=== PATIENT | male | born 1980 | race Caucasian/White ===

== ENCOUNTER 2020-02-26 21:22 | Inpatient (IN) | payer OTHER ==
[~2020-02-26] VITALS: Ht 177.8 cm; Wt 109.3 kg
--- NOTE | ~2020-02-26 | HEMODYNAMI ---
PATIENT:NATHALIE PINEDA MEDICAL RECORD: [id number] : 82 LOCATION:[facility] D.2310 ADMISSION DATE: 02/26/20 Generatedon:02/27/202010:31 Patient name: NATHALIE PINEDA Patient #: [id number] SSN: [id number] : 1980 Date of study: 02/27/2020 Page: Of Hemodynamic Procedure Report Patient Data Patient Demographics Procedure consent was obtained First Name: NATHALIE Gender: Male Last Name: EDWIN : 1980 Patient #: [id number] Age: 39 year(s) Race: Unknown SSN: [id number] Additional ID: [id number] Contact details [address]: [address] [place] [address] State: [place] City: [place] Zip code: [address] Past Medical History Allergies Allergen Reaction Date Comments Reported Penicillins 02/27/2020 Admission Admission Data Admission Date: 02/26/2020 Admission Time: 23:32 Room #: D.2310 Lab Results Lab Result Date: 02/27/2020 Lab Result Time: 0:00 Biochemistry Name Units Result Min Max BUN mg/dl 14 --(--*-)-- 7 18 Creatinine mg/dl 0.8 --(-*--)-- 0.6 1.3 eGFR ml/min 90 --(*---)-- 90 120 NONAFRICAN CBC Name Units Result Min Max Hematocrit % 44.9 --(*---)-- 42 54 Hemoglobin g/dl 16.4 --(--*-)-- 13.5 17.5 Procedure Procedure Types Cath Procedure Diagnostic Procedure [facility] w/Coronaries Sedation Charges Moderate Sedation up to 45 minutes PCI Procedure Coronary Stent Coronary Stent Initial Hemochron ACT Test Procedure Description Procedure Date Procedure Date: 02/27/2020 Procedure Start Time: 9:39 Procedure End Time: 10:24 Procedure Staff Name Function Alecia Mosley RT Monitor Jhony Talbot MD Performing Physician Renetta Baxter RT Scrub [facility] RT Monitor Mary Ellen Acharya RN Nurse Procedure Data Cath Procedure Fluoroscopy Diagnostic fluoroscopy Total fluoroscopy Time: time: 15.7 min 15.7 min Diagnostic fluoroscopy Total fluoroscopy dose: dose: 1854 mGy 1854 mGy Contrast Material Contrast Material Type Amount (ml) Isovue 300 119 Entry Location Entry Primary Successful Side Size Upsize Upsize Entry Closure Rousseau ccessful Closure Location (Fr) 1 (Fr) 2 (Fr) Remarks Device Remarks Radial Right 6 Fr Mechanical artery Short Compression Estimated blood loss: 5 ml Diagnostic catheters Device Type Used For End Catheter Placement DIAGNOSTIC [place] 110cm 5 Procedure Fr catheter ([id number]) DIAGNOSTIC Ghanshyam 110cm Procedure 5Fr catheter (103802) Procedure Complications No complications Procedure Medications Medication Administration Route Dosage 0.9% NaCl I.V. 100 ml/hr Oxygen etCO2 Nasal cannula 2 l/min Lidocaine 2% added to field 20 Heparin Flush Bag added to field 2 bags (1000units/500ml NS) Versed I.V. 1 mg Fentanyl I.V. 25 mcg Brilinta P.O. 90 mg Radial Cocktail added to field 1 syringe (Verapamil 2mg/Nitro 400mcg/Heparin 1500units) Heparin Bolus I.V. 8000 units Nitroglycerin IC/IA I.C. 300 mcg Heparin Bolus I.V. 2000 units Hemodynamics Rest HGB: 16.4 (g/dl) Heart Rate: 75 (bpm) Pressure Samples Time Site Value (mmHg) Purpose Heart Use Rate(bpm) 9:42 LV 138/-7,15 Snapshot 70 9:43 LV 146/-6,19 EDP 74 Gradients Valve Time Site Site Mean SEP/DFP Peak To Heart Use 1 2 (mmHg) (sec/min) Peak Rate (mmHg) (bpm) Aortic 9:43 LV AO 76 Snapshots Pre Cath Intra NCS Post Cath Vital Signs Time Heart Resp SPO2 etCO2 NIBP (mmHg) Rhythm Pain Sedation Rate (ipm) (%) (mmHg) Status Level (bpm) 9:26:45 82 18 96 28 141/87(104) NSR 0 (11) 10(A) , No pain 9:31:44 59 17 95 26 Measuring SB 0 (11) 10(A) , No pain 9:32:06 59 17 96 24.5 139/78(93) SB 0 (11) 10(A) , No pain 9:36:34 70 16 95 27.5 141/77(99) NSR 0 (11) 9(A) , No pain 9:40:52 75 18 97 27.5 120/68(89) NSR 0 (11) 9(A) , No pain 9:45:11 66 17 98 28.2 133/76(126) NSR 0 (11) 9(A) , No pain 9:49:33 75 16 98 31.2 130/76(113) NSR 0 (11) 9(A) , No pain 9:53:51 63 15 97 31.2 128/88(121) NSR 0 (11) 9(A) , No pain 9:58:09 65 17 95 28.2 130/75(105) NSR 0 (11) 9(A) , No pain 10:02:27 58 16 98 26.8 139/82(105) SB 0 (11) 9(A) , No pain 10:06:51 75 19 98 27.5 155/81(100) NSR 0 (11) 9(A) , No pain 10:11:11 62 16 96 28.2 157/89(109) NSR 0 (11) 9(A) , No pain 10:15:31 77 17 97 21.5 121/77(96) NSR 0 (11) 9(A) , No pain 10:19:45 58 17 97 26.8 140/87(104) SB 0 (11) 10(A) , No pain Medications Time Medication Route Dose Verified Delivered Reason Not es Effectiveness by by 9:32:53 0.9% NaCl I.V. 100 Jhony Mary Ellen used for ml/hr Dahiana bello MD RN 9:33:01 Oxygen etCO2 2 l/min Jhony Mary Ellen used for Nasal Dahiana Acharya procedure cannula RN 9:33:06 Lidocaine 2% added 20ml Jhony Jhony for local to vial Dahiana Talbot MD anesthetic field YEBOAH 9:33:11 Heparin Flush added 2 bags Jhony Jhony used for Bag to Dahiana Talbot MD procedure (1000units/500ml field YEBOAH NS) 9:33:16 Versed I.V. 1 mg Jhony Mary Ellen for sedation Dahiana Acharya MD RN 9:33:21 Fentanyl I.V. 25 mcg Jhony Mary Ellen for sedation Dahiana Acharya MD RN 9:34:12 Brilinta P.O. 90 mg Jhony Mary Ellen for Dahiana Acharya antiplatelet RN therapy 9:37:46 Radial Cocktail added 1 Jhony Jhony used for (Verapamil to syringe Dahiana Talbot MD procedure 2mg/Fabien natarajan MD 400mcg/Hepari 9:53:55 Heparin Bolus I.V. 8000 Jhony Mary Ellen for evin ified units Dahiana Acharya anticoagulation with Dr. MD LUCILA Talbot 10:14:11 Nitroglycerin I.C. 300 mcg Jhony Jhony for IC/IA Dahiana Talbot MD vasodilation MD 10:23:09 Heparin Bolus I.V. 2000 Jhony Jhony for evin ified units Dahiana Talbot MD anticoagulation with Dr. MD Talbot Procedure Log Time Note 8:56:55 Informed consent obtained and on chart 9:07:53 Procedure Status Urgent Heart Cath (IP). 9:07:57 Mary Ellen Acharya RN sent for patient. Start room use. 9:07:58 Time tracking: Regular hours (M-F 7:00 - 5:00) 9:08:01 Plan of Care:Hemodynamics will remain stable., Cardiac rhythm will remain stable., Comfort level will be maintained., Respiratory function will remain adequate., Patient/ family verbilizes understanding of procedure., Procedure tolerated without complication., Recovers from procedure without complications.. 9:09:06 H&P Date Dictated: 02/27/2020 ER History on chart.. 9:09:13 Patient allergic to Penicillins 9:09:49 Lab Result : Hemoglobin 16.4 g/dl 9:09:49 Lab Result : Hematocrit 44.9 % 9:09:49 Lab Result : eGFR NONAFRICAN 90 ml/min 9:09:49 Lab Result : BUN 14 mg/dl 9:09:49 Lab Result : Creatinine 0.8 mg/dl 9:18:48 Patient received from ICU to CCL 1 Alert and oriented. Tansferred to table in Supine position. 9:18:49 Correct patient and procedure confirmed by team. 9:18:49 Warm blankets applied, and yunior hugger turned on for patient comfort. 9:18:50 ECG and BP/O2 sat monitors applied to patient. 9:25:31 Vital chart was started 9:25:35 Baseline sample Acquired. 9::43 Rhythm: sinus rhythm 9:25:46 Full Disclosure recording started 9::57 Pre-procedure instructions explained to patient. 9::59 Pre-op teaching completed and patient verbalized understanding. 9:26:05 Family unavailable. 9:26:10 Patient NPO since Midnight. 9:26:17 Is the patient allergic to Iodine/contrast media? No. 9:26:31 Was the patient premedicated? Yes 9:26:32 Is patient on blood thinner?Yes 9::35 ACC The patient was administered the following blood thiners within the last 24 hours: ACCEffient 9::43 Patient diabetic? Yes. 9:26:44 If diabetic: On Metformin? Yes 9:27:00 Snore? Yes 9:27:07 Sleep apnea? Yes 9:27:15 Patient pain scale 0/10 ?. 9:27:25 IV patent on arrival in left forearm with 0.9% NaCl at KVO. 9:27:31 Lab results completed and on chart. 9:27:39 Right Radial & Right Groin area was prepped with chlora-prep and draped in sterile fashion 9:27:40 Alarms reviewed by R. N. 9:27:41 Sharps counted by scrub and verified by R.N. 9:27:42 Physician paged 9:29:02 Physician arrived 9:29:03 --------ALL STOP TIME OUT------ 9:29:04 Final Timeout: patient, procedure, and site verified with staff and physician. All members of the team are in agreement. 9:29:07 Right Radial & Right Groin site verified by team. 9:29:15 Fire Safety Assessment: A--An alcohol-based skin anteseptic being used preoperatively., C--Open oxygen or nitrous oxide is being used., D--An ESU, laser, or fiber-optic light is being used. 9:29:24 Physical assessment completed. ASA score P 3 - A patient with severe systemic disease as per Jhony Talbot MD. 9:29:51 1) 90+ Normal kidney functon but urine findings or structural abnormalities or genetic trait point to kidney disease. 9:30:11 Maximum allowable contrast dose (3.7 X eGFR X 0.75)249 ml. 9:30:19 Sedation plan: IV Moderate Sedation Medication:Versed, Fentanyl 9:30:25 Use device set Radial Dx or PCI 9:32:30 Pt heart rhthym junctional 9:32:53 0.9% NaCl 100 ml/hr I.V. was administered by Mary Ellen Acharya RN; used for procedure; Verbal order read back and verified. 9:33:01 Oxygen 2 l/min etCO2 Nasal cannula was administered by Mary Ellen Acharya RN; used for procedure; Verbal order read back and verified. 9:33:06 Lidocaine 2% 20ml vial added to field was administered by Jhony Talbot MD; for local anesthetic; Verbal order read back and verified. 9:33:11 Heparin Flush Bag (1000units/500ml NS) 2 bags added to field was administered by Jhony Talbot MD; used for procedure; Verbal order read back and verified. 9:33:16 Versed 1 mg I.V. was administered by Mary Ellen Acharya RN; for sedation; Verbal order read back and verified. 9:33:21 Fentanyl 25 mcg I.V. was administered by Mary Ellen Acharya RN; for sedation; Verbal order read back and verified. 9:34:11 Procedure started. 9:34:12 Brilinta 90 mg P.O. was administered by Mary Ellen Acharya RN; for antiplatelet therapy; Verbal order read back and verified. 9:37:46 Radial Cocktail (Verapamil 2mg/Nitro 400mcg/Heparin 1500units) 1 syringe added to field was administered by Jhony Talbot MD; used for procedure; Verbal order read back and verified. 9:39:22 Local anesthetic to right radial artery with Lidocaine 2% by Jhony Talbot MD.INITIAL ACCESS ONLY 9:40:09 A 6 Fr Short sheath was inserted into the Right Radial artery 9:40:12 ACIST Syringe (88284) opened to sterile field. 9:40:13 Medline Cath Pack ([id number]) opened to sterile field. 9:40:14 ACIST Manifold (00130) opened to sterile field. 9:40:14 ACIST Hand Control (16037) opened to sterile field. 9:40:14 Bag Decanter (2001S) opened to sterile field. 9:40:16 Tegaderm 4 x 4 (1626W) opened to sterile field. 9:40:17 MBrace Wrist Support ([id number]) opened to sterile field. 9:40:18 NEEDLE Cook 21G 4cm Radial (V41622) opened to sterile field. 9:40:20 EMERALD Guide Wire (502-455) opened to sterile field. 9:40:22 SHEATH 6FR RAIN (5621093) opened to sterile field. 9:40:35 A DIAGNOSTIC [place] 110cm 5 Fr catheter (598141) was advanced over the wire and used for Procedure. 9:42:06 LV angiography performed. 9:42:08 EF : 70 % 9:42:09 Zero performed for pressure channel P1 9:43:50 RCA angiography performed. 9:46:58 Catheter removed. 9:47:07 A DIAGNOSTIC Ghanshyam 110cm 5Fr catheter (274069) was advanced over the wire and used for Procedure. 9:48:03 LCA angiography performed. 9:48:37 Zero performed for pressure channel P1 9:51:37 COPILOT Valve Control (2815612) opened to sterile field. 9:51:38 BMW 190cm [place] 2 J wire ([id number]) opened to sterile field. 9:51:38 INFLATOR Merit BasixCompak (LS7642) opened to sterile field. 9:51:39 GUIDE 6FR ART 3.5 SH catheter ([id number]) opened to sterile field. 9:51:47 Catheter removed. 9:51:48 Proceeding to intervention. 9:52:04 Pre PCI Site: [place] pRCA has 100% stenosis. 9:52:14 6 Fr ART3.5SH guide catheter was inserted over the wire 9:53:55 Heparin Bolus 8000 units I.V. was administered by Mary Ellen Acharya RN; for anticoagulation; verified with Dr. Talbot Verbal order read back and verified. 10:00:33 BMW wire advanced. 10:02:10 Quick combo pads placed on patients chest and back. 10:02:12 Quick Combo opened to sterile field. 10:02:45 Inflate balloon Inflation number: 1 A EUPHORA 2.0 x 20 Balloon ([id number]) was prepped and advanced across the Prox RCA 100, then inflated to 8 JANETTE for 0:08 (min:sec) . 10:05:58 Inflation number: 2 The EUPHORA 2.0 x 20 Balloon ([id number]) was reinflated across the Prox RCA , to 12 JANETTE for 0:10 (min:sec) . 10:11:16 Place stent Inflation Number: 3 A CHRIS RX 2.25 x 18 stent ([id number]) was prepped and advanced across the Prox RCA 100. The stent was deployed at 18 JANETTE for 0:10 (min:sec) 0. 10:13:23 Stent catheter was removed intact over wire. 10:14:11 Nitroglycerin IC/IA 300 mcg I.C. was administered by Jhony Talbot MD; for vasodilation; Verbal order read back and verified. 10:15:19 Wire removed. 10:15:20 Guide catheter removed. 10:16:42 Sheath removed intact; hemostasis achieved with Mechanical Compression to the Right Radial artery. 10:17:28 Procedure ended.(Physican Out) 10:17:43 Fluoroscopy time 15.70 minutes. 10:17:50 Fluoroscopy dose: 1854 mGy 10:17:50 Flurop Dose total: 1854 10:18:10 Dose Area Product 675219 mGy/cm. 10:18:15 Contrast amount:Isovue 300 119ml. 10:18:17 Maximum allowable dose exceeded? No. 10:18:24 Sharps counted by scrub and verified by R.N. 10:18:30 Hilger band inflated with 11cc of air. 10:18:32 Insertion/operative site no bleeding no hematoma. 10:18:38 Post Procedure Pulses reassessed and unchanged 10:18:51 Post-procedure physical assessment completed. ASA score P 3 - A patient with severe systemic disease as per Jhony Talbot MD. 10:18:57 Post procedure rhythm: sinus rhythm 10:19:00 Estimated blood loss: 5 ml 10:19:03 Post procedure instruction explained to patient.Patient verbalizes understanding. 10:21:18 Procedure type changed to Cath procedure, Diagnostic procedure, LHC, LHC w/Coronaries, Sedation Charges, Moderate Sedation up to 45 minutes, PCI procedure, Coronary Stent, Coronary Stent Initial, Hemochron ACT Test 10:21:21 Procedure and supply charges have been captured, reviewed, submitted and are correct. 10:22:15 ACT drawn and resulted at 282 seconds. (normal therapeutic range 180-240 seconds). 10:22:33 Procedure Complication : No complications 10:22:54 Vital chart was stopped 10:22:57 [facility] Findings: MVD- PCI performed (see procedure note) 10:23:04 Operative report dictated upon procedure completion. 10:23:09 Heparin Bolus 2000 units I.V. was administered by Jhony Talbot MD; for anticoagulation; verified with Dr. Talbot Verbal order read back and verified. 10:24:29 See physician's report for complete and final results. 10:24:35 Report given to ICU. 10:24:39 Patient transfered to ICU with Bed. 10:24:45 Full Disclosure recording stopped 10:24:45 Procedure ended. 10:24:50 End room use (Document Last) 10:25:52 End room use (Document Last) 10:26:24 End room use (Document Last) Intervention Summary Intervention Notes Time ActionType Lesion and Equipment Used Action# Pressure Duration Attributes 10:02:45 Inflate Prox RCA EUPHORA 2.0 x 1 8 00:08 balloon 20 Balloon ([id number]) 10:05:58 Reinflate Prox RCA EUPHORA 2.0 x 2 12 00:10 balloon 20 Balloon ([id number]) 10:11:16 Place stent Prox RCA CHRIS RX 2.25 x 3 18 00:10 18 stent ([id number]) Device Usage Item Name Manufacture Quantity Catalog Number Hospital Part Current M inimal Lot# / Charge Number Stock Stock Serial# Code ACIST Syringe Acist 1 61135 269398 043573 017296 2 0 (85918) Medical Systems Inc Medline Cath Medline 1 [id number] 700014 90782 982686 5 Pack ([id number]) Bag Decanter Microtek 1 2001S 093583 00222 956255 5 (2001S) Medical Inc. ACIST Hand Acist 1 47232 623050 399608 213238 5 Control Medical (81327) Systems Inc ACIST Manifold Acist 1 45964 227330 925655 824180 5 (75334) Medical Systems Inc Tegaderm 4 x 4 3M 1 1626W 575578 391701 076138 5 (1626W) MBrace Wrist Advanced 1 140-0250-00 645762 95113 429702 5 Support Vascular (520881858) Dynamics NEEDLE SkillPages 1 B62931 309900 185890 706041 5 21G 4cm Radial (V56814) EMERALD Guide Cardinal 1 502-455 594151 457020 393214 5 Wire (502-455) Health SHEATH 6FR Cardinal 1 6111812 048214 2205710 622474 5 RAIN (6074334) Health DIAGNOSTIC Terumo 1 40-5013 325787 892673 226648 5 [place] 110cm 5 Fr catheter (334954) DIAGNOSTIC Terumo 1 40-5023 631174 684737 738502 5 Ghanshyam 110cm 5Fr catheter (869484) COPILOT Valve Angel 1 9857010 847220 803629 449932 5 Control Vascular (8967745) INFLATOR Merit Merit 1 DR9633 142992 487672 901237 1 5 [place] InternationalksGreystone (AY5166) BMW 190cm Angel 1 [id number] 118947 65566 269211 5 [place] 2 J Vascular wire (2169723F) GUIDE 6FR ART Dexter 1 [id number] 329838 888898 527603 0 3.5 Scientific catheter (142265878) Loved.la 1 41412-554777 573384 935179 924009 5 EUPHORA 2.0 x Medtronic 1 [id number] 047409 366064 217891 5 [id number] 20 Balloon (THZ1763M) CHRIS RX 2.25 x Medtronic 1 [id number] 747172 7629119 225649 5 [id number] 18 stent ([id number]) Signature Audit May Stage Time Signature Unsigned Intra-Procedure 02/27/2020 Alecia Mosley 10:25:52 AM RT(R) Intra-Procedure 02/27/2020 Mary Ellen Acharya 10:26:24 AM RN [place] [address] [place] [address]
[2020-02-26] MEDS ORDERED: GLUCOTROL ER2.5 MG PO (21:27)
[2020-02-26 21:38] LABS: BASOPHILS 1.1 % (0-2); EOSINOPHILS 2.6 % (0-7); HEMATOCRIT 47.4 % (42.0-54.0); HEMOGLOBIN 17.9 g/dL (13.5-17.5); IMMATURE GRANULOCYTES 0.3 % (0-5); LYMPHOCYTES 44.1 % (15-50); MCH 32.5 pg (26.0-34.0); MCHC 37.8 g/dL (31.0-37.0); MEAN PLATELET VOLUME 11.2 fL (7.4-10.4); NEUTROPHILS 45.9 % (40-80); PLATELET COUNT 186 10x3/uL (130-400); RBC 5.51 10x6/uL (4.20-6.10); RDW 11.7 % (11.5-14.5); WBC 6.7 10x3/uL (4.8-10.8)
[2020-02-26 22:12] LABS: APTT 25.9 SECONDS (22.8-39.4); INR 0.89 (0.85-1.17)
[2020-02-26 22:55] LABS: MAGNESIUM - SERUM 1.7 mg/dL (1.8-2.4)
[2020-02-26 22:56] LABS: CREATININE - SERUM 0.7 mg/dL (0.6-1.3); GLUCOSE 378 mg/dL (74-106); UREA NITROGEN 13 mg/dL (7-18); eGFR NON AFRICAN AMERICAN > 90 mL/min (90-120)
[2020-02-26 22:57] LABS: CALC OSMOLALITY 253 mosm/kg (275-300)
[2020-02-26 22:58] LABS: CARBON DIOXIDE 19.1 mmol/L (21.0-32.0); CHLORIDE - SERUM 86 mmol/L (98-107); POTASSIUM - SERUM 3.2 mmol/L (3.5-5.1)
[2020-02-26 22:59] LABS: ALT (SGPT) 61 U/L (10-68); CALCIUM 7.6 mg/dL (8.5-10.1)
[2020-02-26 23:00] LABS: ALKALINE PHOSPHATASE 125 U/L (30-120); BILIRUBIN - TOTAL 0.49 mg/dL (0.2-1.3)
[2020-02-26 23:01] LABS: ALBUMIN 3.6 g/dL (3.4-5.0); CKMB 17.5 U/L (0.0-3.6); CREATINE KINASE 66 UL (21-232); PROTEIN - SERUM 5.5 g/dL (6.4-8.2)
[2020-02-26 23:08] LABS: TROPONIN-I 0.184 ng/mL (0.000-0.060)
[2020-02-26 23:09] LABS: SODIUM 118 mmol/L (136-145)
[2020-02-26 23:50] VITALS: BP 158/119
--- NOTE | 2020-02-26 23:50 | NUR ---
EDP NOTIFIED, PULSE DOWN TO 54. LOPRESSOR NOT TO BE GIVEN IN ED.
[2020-02-27] VITALS (27 sets, daily range): BP systolic 117–166; BP diastolic 70–117; Ht 177.8 cm; Wt 109.3 kg
--- NOTE | 2020-02-27 00:23 | NUR ---
PT ADMITTED TO ICU INDEPENDENTLY TRANSFERRED FROM STRETCHER TO BED. PLACED ON CM READING JUNCTIONAL SLIGHT ST ELEVATION. NITRO GTT AT 10 MCG NO CHEST PAIN AT THIS TIME SEE ADMISSION ASSESSMENT. PT INFORMED OF S/S TO REPORT VERBALIZES GOOD UNDERSTANDING
--- NOTE | 2020-02-27 00:30 | NUR ---
OTTONIEL JACKSON BUSINESS DEVELOPMENT PROFESSIONAL ON UNIT TO CHECK ON PT. OTTONIEL HAD SPOKEN WITH [facility] AND LABS CARDIAC TROP ARE Q2 HOURS. OTTONIEL STATED LAB HAD DIFFICULTY WITH VALUES BEING ATYPICAL BUT TO REPLACE THE MAG AND POTASSIUM PER ELECTROLYTE PROTOCOL. PT IS TO REMAIN NPO PROBABLE HEART CATH IN AM.
--- NOTE | 2020-02-27 01:50 | NUR ---
DR SAN NOTIFIED PER PHONE OF ACCUCHECK 426 AND NOTIFIED PT PAIN LEVEL UPDATED ON LABS NO NEW ORDERS AT THIS TIME
[2020-02-27 03:28] LABS: BASOPHILS 0.3 % (0-2); EOSINOPHILS 0.2 % (0-7); HEMATOCRIT 44.9 % (42.0-54.0); HEMOGLOBIN 16.4 g/dL (13.5-17.5); IMMATURE GRANULOCYTES 0.3 % (0-5); LYMPHOCYTES 11.7 % (15-50); MCHC 36.5 g/dL (31.0-37.0); MCV 87.5 fL (80.0-100.0); MEAN PLATELET VOLUME 10.9 fL (7.4-10.4); MONOCYTES 6.3 % (2-11); NEUTROPHILS 81.2 % (40-80); PLATELET COUNT 171 10x3/uL (130-400); RBC 5.13 10x6/uL (4.20-6.10); RDW 11.8 % (11.5-14.5); WBC 8.8 10x3/uL (4.8-10.8)
[2020-02-27 03:42] LABS: APTT 27.9 SECONDS (22.8-39.4); INR 1.04 (0.85-1.17); PROTIME 13.6 SECONDS (11.6-15.0)
[2020-02-27 04:18] LABS: MAGNESIUM - SERUM 2.4 mg/dL (1.8-2.4)
[2020-02-27 04:19] LABS: GLUCOSE 462 mg/dL (74-106); PHOSPHOROUS 3.4 mg/dL (2.5-4.9)
[2020-02-27 04:20] LABS: CALC OSMOLALITY 283 mosm/kg (275-300); CARBON DIOXIDE 16.6 mmol/L (21.0-32.0); CHLORIDE - SERUM 99 mmol/L (98-107); CREATININE - SERUM 0.8 mg/dL (0.6-1.3); POTASSIUM - SERUM 4.5 mmol/L (3.5-5.1); SODIUM 131 mmol/L (136-145); UREA NITROGEN 14 mg/dL (7-18); eGFR NON AFRICAN AMERICAN > 90 mL/min (90-120)
[2020-02-27 04:21] LABS: ALKALINE PHOSPHATASE 126 U/L (30-120); ALT (SGPT) 66 U/L (10-68); BILIRUBIN - TOTAL 0.88 mg/dL (0.2-1.3); CALCIUM 7.5 mg/dL (8.5-10.1)
[2020-02-27 04:22] LABS: ALBUMIN 3.4 g/dL (3.4-5.0); CKMB 3.7 U/L (0.0-3.6); CREATINE KINASE 94 UL (21-232); PRO BNP 108 pg/mL (0-125); PROTEIN - SERUM 6.7 g/dL (6.4-8.2); TROPONIN-I 0.376 ng/mL (0.000-0.060)
[2020-02-27 04:26] LABS: CHOLESTEROL, TOTAL 341 mg/dL (0-200); HDL CHOLESTEROL 19 mg/dL (32-96); TRIGLYCERIDE 2457 mg/dL (30-200)
--- NOTE | 2020-02-27 05:05 | NUR ---
ELEVATED CRITICAL TROPONIN CALLED TO DR VALERO. HE STATED KEEP PT NPO AND PROBABLE CATH THIS AM DICONTINUE THE SERIAL TROP DRAWS
--- NOTE | 2020-02-27 09:16 | NUR ---
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
--- NOTE | 2020-02-27 09:21 | NUR ---
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
--- NOTE | 2020-02-27 10:44 | NUR ---
ORDER FROM DR VALERO TO TRANSFER PATIENT TO FLOOR
[2020-02-27 12:35] LABS: CALCIUM 7.6 mg/dL (8.5-10.1); CARBON DIOXIDE 17.7 mmol/L (21.0-32.0); CHLORIDE - SERUM 102 mmol/L (98-107); SODIUM 135 mmol/L (136-145); UREA NITROGEN 12 mg/dL (7-18); eGFR NON AFRICAN AMERICAN 89 mL/min (90-120)
[2020-02-27 12:44] LABS: CALC OSMOLALITY 279 mosm/kg (275-300); GLUCOSE 277 mg/dL (74-106); POTASSIUM - SERUM 3.7 mmol/L (3.5-5.1)
--- NOTE | 2020-02-27 13:29 | NUR ---
report given to kathy padilla
[2020-02-27] MEDS ORDERED: BAYER CHEWABLE81 MG PO (13:58)
[2020-02-27] MEDS ORDERED: PLAVIX75 MG PO (13:58)
[2020-02-27] MEDS ORDERED: LIPITOR40 MG PO (13:59)
[2020-02-27] MEDS ORDERED: COREG6.25 MG PO (13:59)
[2020-02-27] MEDS ORDERED: BRILINTA90 MG PO (14:59)
--- NOTE | 2020-02-27 15:24 | NUR ---
patient taken via wheelchair
--- NOTE | 2020-02-27 15:50 | MORECARE ---
CASE MANAGEMENT DISCHARGE SUMMARY PATIENT: NATHALIE PINEDA UNIT: [id number] ADM DATE: 02/26/20 AGE: 39 : 82 SEX: M ROOM/BED: D.2310 AUTHOR: VERNELL ASHFORD PHYSICIAN: REFERRING PHYSICIAN: SHELLY SAN MD DATE OF SERVICE: 02/27/20 Discharge Plan Patient Name: NATHALIE PINEDA Facility: [facility]:[place] : 1980 Planned Disposition: Home Anticipated Discharge Date: Discharge Date: Expected LOS: Initial Reviewer: [email or web address] Initial Review Date: 02/27/2020 Generated: 02/27/20 4:50 pm Patient Name: NATHALIE PINEDA Page [id number] at 1550 All edits/amendments must be made on the electronic document DICTATION DATE: 02/27/20 1550 COLOR FINISHER: RADHA 02/27/20 1550 RPT#: [id number] DC DATE: STATUS: ADM IN [facility] [address] [place] [address] END OF REPORT
--- NOTE | 2020-02-27 15:59 | MORECARE ---
CASE MANAGEMENT DISCHARGE SUMMARY PATIENT: NATHALIE PINEDA UNIT: [id number] ADM DATE: 02/26/20 AGE: 39 : 82 SEX: M ROOM/BED: D.2310 AUTHOR: VERNELL ASHFORD PHYSICIAN: REFERRING PHYSICIAN: SHELLY SAN MD DATE OF SERVICE: 02/27/20 Discharge Plan Patient Name: NATHALIE PINEDA [facility] [facility] 1980 Planned Disposition: Home Anticipated Discharge Date: Discharge Date: 02/27/2020 Expected LOS: Initial Reviewer: [email or web address] Initial Review Date: 02/27/2020 Generated: 02/27/20 4:58 pm Last DP export: 02/27/20 2:50 p Patient Name: NATHALIE PINEDA Page [id number] at 1559 All edits/amendments must be made on the electronic document DICTATION DATE: 02/27/20 1558 THERMAL ENGINEER: RADHA 02/27/20 1558 RPT#: [id number] DC DATE:02/27/20 STATUS: DIS IN [facility] [address] [place] [address] END OF REPORT
== END 2020-02-27 15:54 | disposition home or self-care (01) | DRG 247 ==
LOC: D.ER 21:22 → D.ICU 23:32
PROVIDERS: Emergency Medicine; Internal Medicine Cardiovascular Disease; ADMIT Internal Medicine Nephrology; ATTEND Internal Medicine Nephrology
PROC: B2111ZZ Fluoroscopy of Multiple Coronary Arteries using Low Osmolar Contrast (ICD-10-PCS; 2020-02-27)
PROC: B2151ZZ Fluoroscopy of Left Heart using Low Osmolar Contrast (ICD-10-PCS; 2020-02-27)
PROC: 027034Z Dilation of Coronary Artery, One Artery with Drug-eluting Intraluminal Device, Percutaneous Approach (ICD-10-PCS; principal; 2020-02-27 09:00)
PROC: 4A023N7 Measurement of Cardiac Sampling and Pressure, Left Heart, Percutaneous Approach (ICD-10-PCS; 2020-02-27 09:00)
DX: I21.4 Non-ST elevation (NSTEMI) myocardial infarction (principal); E87.1 Hypo-osmolality and hyponatremia; F17.203 Nicotine dependence unspecified, with withdrawal; I25.110 Atherosclerotic heart disease of native coronary artery with unstable angina pectoris; E11.65 Type 2 diabetes mellitus with hyperglycemia; E87.6 Hypokalemia; I10 Essential (primary) hypertension; E78.5 Hyperlipidemia, unspecified; F10.20 Alcohol dependence, uncomplicated